=== PATIENT | male | born 1975 | race Caucasian/White ===

== ENCOUNTER → 2021-10-27 16:02 | Outpatient (CLI) | payer BC, SELFPAY ==
--- NOTE | ~2021-10-27 | XR_ITS ---
EXAMINATION: XR chest 2V 10/27/2021 16:13 INDICATION: Cough PROCEDURE: 2 view chest COMPARISON: No prior studies for comparison. FINDINGS: The lungs are clear. The cardiomediastinal silhouette is within normal limits. There are no pleural effusions. There is no pneumothorax suspected. IMPRESSION: 1: NO ACUTE CARDIOPULMONARY DISEASE. Reviewed, dictated and finalized at location [facility]. [facility]
== END ==
PROVIDERS: PCP Family Medicine; Visit Provider Family Medicine
DX: R05.9 Cough, unspecified (principal)
CPT/HCPCS: 71046

== ENCOUNTER 2023-02-09 12:30 | Outpatient (RCR) | payer BC, SELFPAY ==
--- NOTE | 2023-01-08 16:48 | BUPTOPEVAL1 ---
Assessment and note entered by Mari Oconnor, PT Evaluation Information Assessment Status Evaluation Diagnosis sciatica unspec Subjective Information First noticed with right leg bent up and to side at night would have pain in right hip. Recently left thigh numbness and tingling/prickly Currently tender feels like a bruise to the outside of the left leg Reported Pain Level Pain Score 0: Self Report Assessment PT Clinical Summary Pt presents w/ c/o sciatica. Reports initially pain in right hip with right LE in the flexed, abducted, externally rotated position. Currently has numbness/tingling left outer thigh that wakes him at night. Pt demos left lower extremity longer than right, decreased glute med and max strength, decresaed transverse abdominal strength and awareness, decreased quad/hip flexor flexibility. Pt will benefit from therapy for education, strengthening, flexibility, and lumbopelvic stabilization training to reduce discomfort and decrease likelihood of future flare-ups. Plan of Care Interventions Electrical Stimulation,Gait Training,Hot Pack/Cold Pack,Manual Therapy,Neuro Re-education,Patient/ Caregiver Educati,Prosthetic Training,Therapeutic Activities,Therapeutic Exercise,Ultrasound PT Services Indicated Yes Treatment Frequency and 1-2x weekly x 4 weeks Duration These treatments will address the objective and functional deficits as defined above. The patient will be advanced safely and appropriately in order for the patient to progress towards his/her prior level of function. Additional exercises will be introduced and as well as a comprehensive home exercise program upon discharge, if needed, ?to ensure carryover of functional gains achieved in the clinic. This treatment plan has been reviewed and agreement upon by the patient.
--- NOTE | 2023-02-09 13:34 | PTOPDC ---
Assessment and note entered by Mari Oconnor, PT Assessment Status Discharge Diagnosis sciatica unspec Subjective Information Reports feeling 70-80% improved overall Cont to have tenderness and numbness outside of leg, but last two nights has not been woken up by pain. Just recently added third layer into shoe yesterday without issue MD advised continuing with Gabapentin 300mg x2 daily Reported Pain Level Pain Score 0: Self Report Assessment PT Clinical Summary Pt has attended therapy consistently for left LE radicular symptoms. Pt shows significant improvement in all tested musculature, improved flexibility overall, improved gait and postures. Pt also reports himself at 70-80% improved, understands his home exercises, and has met all PT goals. Thus patient is being discharged from therapy at this time for completion of plan of care
--- NOTE | 2023-02-09 17:29 | PCPTNOTE ---
Therapy charges not entered at time of treatment Charges submitted to supercharge repair supervisor for correction
== END 2023-02-09 13:48 | disposition home or self-care (01) ==
LOC: ANHHIPT 12:30
PROVIDERS: PCP Family Medicine; Visit Provider Family Medicine
DX: M54.30 Sciatica, unspecified side (principal)
CPT/HCPCS: 97014; 97110; 97112; 97140; 97161; G0283